=== PATIENT | male | born 1975 | race Two or more races ===

== ENCOUNTER 2017-09-05 13:02 | Outpatient (CLI) | payer BC | END 2017-09-05 23:59 | disposition home or self-care (01) | LOC: MSC 13:02 | PROVIDERS: ATTEND Anesthesiology | DX: M47.26 Other spondylosis with radiculopathy, lumbar region (principal); M51.26 Other intervertebral disc displacement, lumbar region; M96.1 Postlaminectomy syndrome, not elsewhere classified ==